=== PATIENT | male | born 1985 | race Two or more races ===

== ENCOUNTER 2016-10-25 05:17 | Day surgery (SDC) | payer OTHER ==
[2016-10-24 11:31] VITALS: BMI 28.7
[2016-10-25] MEDS ORDERED: BUPIVACAINE HCL/PF 0.5% (5MG/ML) 10 ML VIAL ONE (08:53)
[2016-10-25] MEDS ORDERED: MIDAZOLAM HCL 2 MG/2 ML SINGLE DOSE VIAL ONE ×2 (08:59)
[2016-10-25] MEDS ORDERED: PROPOFOL 20 ML ONE ×2 (08:59)
[2016-10-25] MEDS ORDERED: LIDOCAINE 2%/EPINEPHRINE 1:100000 (50 ML MD VIAL) INF ONE (09:06)
[2016-10-25] MEDS ORDERED: BUPIVACAINE HCL/PF 0.5% (5MG/ML) 10 ML VIAL IJ ONE (09:06)
[2016-10-25] MEDS ORDERED: KETOROLAC TROMETHAMINE 30 MG/1 ML VIAL ONE (09:16)
[2016-10-25] MEDS ORDERED: DEXAMETHASONE SOD PHOSPHATE 4 MG/1 ML VIAL ONE (09:16)
[2016-10-25] MEDS ORDERED: ONDANSETRON 4 MG/2 ML VIAL IVPUSH PRN (09:32)
[2016-10-25] MEDS ORDERED: oxyCODONE HCL 5 MG TABLET PO PRN (09:32)
[2016-10-25] MEDS ORDERED: LACTATED RINGERS SOLUTION 1,000 ML IV SCH (09:45)
--- NOTE | 2016-10-25 09:58 | OP ---
Operative Note - Note: Operative Date: 10/25/16 Pre-Operative Diagnosis: left lateral meniscus tear Operation: left knee arthroscopy and partial lateral meniscectomy Post-Operative Diagnosis: Same as Pre-op Surgeon: Bernardo Rai Anesthesia: General Operative Report Dictated: Yes
--- NOTE | 2016-10-25 10:00 | HP ---
[facility] - Chief Complaint Chief Complaint: left knee pain History Source: Patient - Past Medical History Allergies/Adverse Reactions: Allergies Allergy/AdvReac Type Severity Reaction Status Date / Time No Known Allergies Allergy Verified 10/25/16 07:55 - Current Medications Current Medications: Home Medications Medication Instructions Recorded NK [No Known Home Medication] 10/24/16 [facility] Physical Exam - Physical Examination Vital Signs: Vital Signs Period Temp Pulse Resp BP Sys/Galan Pulse Ox Last 24 Hr 97.7 F-97.7 F 54-54 20-20 100-100/70-70 100 Extremities: Other (left lateral knee joint line tenderness) [facility] Impression/Plan - Impression/Plan Impression: left lateral meniscus tear Operative Procedure: arhtroscopy left knee Date to be Performed: 10/25/16
--- NOTE | 2016-10-25 11:25 | OP ---
DATE OF OPERATION: 10/25/2016 PREOPERATIVE DIAGNOSIS: Left lateral meniscus tear. POSTOPERATIVE DIAGNOSIS: Left lateral meniscus tear. PROCEDURE: Arthroscopy, left knee, partial lateral meniscectomy. SURGICAL ATTENDING: Bernardo Rai MD ANESTHESIA: General with LMA. CLOSURE: 4-0 nylon. COMPLICATIONS: None. CONDITION: To recovery room in stable condition. DESCRIPTION OF PROCEDURE: Patient was taken to the operating room on October 25, 2016. General anesthesia with LMA was administered by the anesthesiologist. The left lower extremity was prepped and draped in the usual sterile fashion. Superolateral, mediolateral, infrapatellar portal sites were infiltrated with 1% Xylocaine with epinephrine. Superolateral portal was made with a 15-blade followed by a blunt trocar. The knee was aspirated and inflated with a cocktail of 10 mL of 1% Xylocaine and 10 mL with 0.5% Marcaine and 20 mL of arthroscopic saline. The medial and lateral infrapatellar portals were then made with a 15 blade followed by blunt trocar. The scope was placed in the lateral infrapatellar portal and up into the suprapatellar pouch. Pouch was visualized to be clean. The medial and lateral gutters were visualized to be clean. The undersurface of the patella and trochlea were visualized to be intact. With valgus stress on the knee, the medial compartment was entered and medial meniscus was visualized, probed, and found to be intact. The medial femoral condyle was run and found to be intact as was the medial tibial plateau. At 90 degrees, the ACL was visualized, probed and found to be intact. In the figure of 4 position, lateral compartment was entered. Lateral meniscus was visualized and probed and had a large horizontal cleavage tear of the lateral meniscus extending from its mid portion all the way posteriorly with flaps as well. This was debrided back to smooth, stable meniscus tissue. The whole posterior horn from the popliteal hiatus posterior was debrided. The anterior port was balanced for stable meniscus. The lateral femoral condyle was run and found to be intact, as was the lateral tibial plateau. The knee was irrigated with copious amounts of irrigation. The portals were closed using 4-0 nylon. Prior to closure, 20 mL of 0.5% Marcaine was infused through the outflow portal prior to pulling the trocar. Sterile pressure dressing was placed over the knee. Patient awakened from anesthesia and transferred to recovery in stable condition. No complications. Estimated blood loss negligible. Cielo RODRIGUEZ/[id number]
[2016-10-25 11:36] VITALS: TEMP 97.6
[2016-10-25 12:52] VITALS: BP 125/66; PULSE 62
--- NOTE | 2016-10-26 12:21 | PATH ---
Surgical Pathology Report Patient Name: BONNIE HERNANDEZ [facility]. Rec. #: [id number] /Age/Gender: 1985 (Age: 31) / M Account: [id number] Location: [facility] SURGICAL Taken: 10/25/2016 Received: 10/25/2016 Reported: 10/26/2016 Physicians: Bernardo Rai M.D. Specimen(s) Received LEFT KNEE SHAVINGS Clinical History Left knee tear Final Diagnosis KNEE, LEFT, ARTHROSCOPIC SHAVING: FIBROCARTILAGE WITH MYXOID DEGENERATIVE CHANGES, ALONG WITH PORTIONS OF SYNOVIUM. Electronically Signed Kg Denney M.D. Gross Description Received in formalin, labeled "left knee shavings," is a 4.5 x 4.2 x 0.6 cm. aggregate of smith-yellow soft tissue fragments. A manufacturer's service representative portion is submitted in one cassette. /10/25/201610/25/2016
== END 2016-10-25 12:30 | disposition home or self-care (01) ==
LOC: JASU-SURG 05:17
PROVIDERS: ATTEND Orthopaedic Surgery
PROC: 0SBD4ZZ Excision of Left Knee Joint, Percutaneous Endoscopic Approach (ICD-10-PCS; principal; 2016-10-25 08:45)
DX: S83.282A Other tear of lateral meniscus, current injury, left knee, initial encounter (principal); X58.XXXA Exposure to other specified factors, initial encounter; Y93.9 Activity, unspecified; Y92.9 Unspecified place or not applicable; Y99.9 Unspecified external cause status
CPT/HCPCS: 88304-TC; 94760; 97116-GP

== ENCOUNTER 2017-07-09 06:31 | Day surgery (SDC) | payer OTHER ==
[2017-07-05 17:40] VITALS: BMI 29.9
[2017-07-09] MEDS ORDERED: MIDAZOLAM HCL 2 MG/2 ML SINGLE DOSE VIAL ONE (07:34)
[2017-07-09] MEDS ORDERED: PROPOFOL 20 ML ONE (07:34)
[2017-07-09] MEDS ORDERED: SUCCINYLCHOLINE CHLORIDE 200 MG/10 ML VIAL ONE (07:34)
[2017-07-09] MEDS ORDERED: BUPIVACAINE HCL/PF 0.25% (2.5MG/ML) 10 ML VIAL ONE ×2 (07:36→09:18)
[2017-07-09] MEDS ORDERED: ceFAZolin SODIUM 1 GM VIAL IVPB ONE (08:20)
[2017-07-09] MEDS ORDERED: ONDANSETRON 4 MG/2 ML VIAL IVPUSH PRN (08:53)
[2017-07-09] MEDS ORDERED: oxyCODONE HCL 5 MG TABLET PO PRN ×2 (08:53)
[2017-07-09] MEDS ORDERED: LACTATED RINGERS SOLUTION 1,000 ML IV SCH (09:00)
[2017-07-09] MEDS ORDERED: DESFLURANE GAS 240 ML BOTTLE IH ONE (09:04)
[2017-07-09] MEDS ORDERED: BENZOIN/ALOE VERA/STORAX/TOLU 58 ML BOTTLE ONE (09:14)
[2017-07-09] MEDS ORDERED: BUPIVACAINE HCL/PF 0.5% (5MG/ML) 10 ML VIAL ONE (09:18)
[2017-07-09] MEDS ORDERED: BUPIVACAINE HCL/PF 0.25% (2.5MG/ML) 10 ML VIAL IJ ONE (09:20)
--- NOTE | 2017-07-09 10:53 | OP ---
Operative Note - Note: Operative Date: 07/09/17 Pre-Operative Diagnosis: bilateral varicoceles Operation: bilateral varicocelectomy Findings: bilateral varicoceles left greater than right Post-Operative Diagnosis: Same as Pre-op Surgeon: Tal Jeffery Anesthesia: General Specimens Removed: bilateral varicoceles Operative Report Dictated: Yes
[2017-07-09] MEDS ORDERED: oxyCODONE HCL 5 MG TABLET PO ONE ×3 (11:21→11:52)
[2017-07-09] MEDS ORDERED: oxyCODONE HCL 5 MG TABLET ONE (11:25)
[2017-07-09] MEDS ORDERED: ONDANSETRON 4 MG/2 ML VIAL IVPUSH ONE ×2 (11:52→13:50)
[2017-07-09 13:32] VITALS: TEMP 98
[2017-07-09] MEDS ORDERED: ONDANSETRON 4 MG/2 ML VIAL ONE (13:46)
[2017-07-09 14:45] VITALS: BP 142/50; PULSE 67
--- NOTE | 2017-07-09 14:56 | OP ---
DATE OF OPERATION: 07/09/2017 PREOPERATIVE DIAGNOSIS: Bilateral varicoceles. POSTOPERATIVE DIAGNOSIS: Bilateral varicoceles. PROCEDURE: Bilateral varicocelectomy. SURGEON: Nathaniel Menendez MD ANESTHESIA: General. DESCRIPTION OF PROCEDURE: The patient was brought in the operating room and placed in the supine position on the operating room table. A left varicocele, which was a grade 3/3 as well as a 2/3 right varicocele were identified. The operation was started once anesthesia and preoperative antibiotics were administered. A 4-cm left pubic incision was made roughly 3 cm below the external inguinal ring on the left side was made. Sharp and blunt dissection was taken down to the level of the spermatic cord. The spermatic cord was isolated and brought out of the wound. An [place] clamp was utilized to stabilize the spermatic cord. The spermatic cord was then surgically explored with blunt and sharp dissection. The varicocele packet was isolated. The artery of the vas and vas deferens were isolated away from the varicocele packet. At this point, proximal and distal suture ligatures were placed on the varicocele packet, and a segment of the varicocele packet was sent for pathologic evaluation. Excellent hemostasis was attained. A 2-layered closure consisting of a 3-0 Vicryl subcutaneous layer and a subcuticular 4-0 running chromic stitch was utilized. The same procedure was performed on the opposite side. No complications were noted. Marcaine 0.25% was injected bilaterally into the wound. The patient tolerated the procedure very well. Disposition of the patient was to recovery room. NATHANIEL MENENDEZ M.D. [id number]
--- NOTE | 2017-07-11 08:40 | PATH ---
Surgical Pathology Report Patient Name: BONNIE HERNANDEZ [facility]. Rec. #: [id number] /Age/Gender: 1985 (Age: 31) / M Account: [id number] Location: [facility] SURGICAL Taken: 07/09/2017 Received: 07/09/2017 Reported: 07/11/2017 Physicians: Tal Jeffery Specimen(s) Received A: LEFT VARICOCELE B: RIGHT VARICOCELE Clinical History Bilateral varicocele Final Diagnosis A. LEFT VARICOCELE, RESECTION: CONSISTENT WITH VARICOCELE. B. RIGHT VARICOCELE, RESECTION: CONSISTENT WITH VARICOCELE. Electronically Signed Nany Back M.D. Gross Description A. received in formalin labeled "left varicocele," is a 2.7 x 2.0 x 1.3 cm portion of smith-castillo fibromembranous tissue with attached fat, consistent with a varicocele. Lever Tender sections are submitted in one cassette. B. Received in formalin labeled "right varicocele," is a 2.0 x 1.3 x 0.5 cm portion of smith-castillo fibromembranous tissue with attached fat, consistent with a varicocele. Lever Tender sections are submitted in one cassette. /07/09/2017 saudi07/09/2017
== END 2017-07-09 15:00 | disposition home or self-care (01) ==
LOC: JASU-SURG 06:31
PROVIDERS: ATTEND Urology
PROC: 0VBH0ZZ Excision of Bilateral Spermatic Cords, Open Approach (ICD-10-PCS; principal; 2017-07-09 08:00)
DX: I86.1 Scrotal varices (principal)
CPT/HCPCS: 88304-TC; 94760